=== PATIENT | female | born 1970 | race Caucasian/White ===

== ENCOUNTER → 2017-11-15 | Outpatient (CLI) | payer OTHER | LOC: FIMAGING 09:53 | PROVIDERS: ATTEND Physician Assistant | DX: Z12.31 Encounter for screening mammogram for malignant neoplasm of breast (principal) ==

== ENCOUNTER → 2019-03-06 | Outpatient (CLI) | payer OTHER | LOC: FIMAGING 13:44 | DX: Z12.31 Encounter for screening mammogram for malignant neoplasm of breast (principal) ==